=== PATIENT | male | born 1970 | race African-American/Black ===

== ENCOUNTER → 2019-07-01 | Outpatient (CLI) | payer OTHER ==
--- NOTE | 2019-07-01 11:23 | CT ---
EXAMINATION TYPE: CT abdomen pelvis wo/w con DATE OF EXAM: 07/01/2019 COMPARISON: Hematuria HISTORY: Hematuria. Pt not having any other symptoms currently CT DLP: 3453.20 mGycm Automated exposure control for dose reduction was used. CONTRAST: CT scan of the abdomen pelvis is performed with IV Contrast, patient injected with 100 mL of Isovue 3 00. FINDINGS- LUNG BASES- No significant abnormality is appreciated. LIVER/GB- No gross abnormality is appreciated. PANCREAS- No gross abnormality is seen. SPLEEN- No gross abnormality is seen. ADRENALS- No gross abnormality is seen. KIDNEYS/BLADDER- bilateral lobulation of the renal cortex with no definable mass. Left kidney: There are 2 punctate 1 mm calcifications involve the left kidney with no hydronephrosis. Post contrast images demonstrate lobulation of the renal cortex. There is cortical loss involving th e apex. Right kidney: No hydronephrosis or nephrolithiasis.. BOWEL- no bowel dilatation. Normal appendix. LYMPH NODES- No greater than 1cm abdominal or pelvic lymph nodes areappreciated. OSSEOUS STRUCTURES-hypertrophic and degenerative change of the spine. OTHER- prostate gland is mildly thickened and I cannot exclude a mild posterior bladder wall thicken ing. IMPRESSION- 1. Left renal nephrolithiasis without evidence of hydronephrosis. 2. Mild prostate hypertrophy. Could not exclude mild thickening of the posterior wall of the bladder. Recommend ultrasound of the bladder.
== END | disposition home or self-care (01) ==
LOC: RADCTMAIN 07:51
PROVIDERS: ATTEND Urology
DX: N20.0 Calculus of kidney (principal); N40.0 Benign prostatic hyperplasia without lower urinary tract symptoms
CPT/HCPCS: 74178; Q9967

== ENCOUNTER → 2019-07-06 | Outpatient (CLI) | payer OTHER ==
[2019-07-06 12:49] LABS: Calcium 9.9 mg/dL (8.4-10.2); Potassium 4.5 mmol/L (3.5-5.1)
[2019-07-06 14:05] LABS: HCT 45.4 % (39.0-53.0); HGB 14.4 gm/dL (13.0-17.5); MCH 28.8 pg (25.0-35.0); MCHC 31.6 g/dL (31.0-37.0); MCV 91.1 fL (80.0-100.0); Mean Platelet Volume 6.1; Platelet Count 237 k/uL (150-450); RBC 4.99 m/uL (4.30-5.90); RDW 12.6 % (11.5-15.5); WBC 2.7 k/uL (3.8-10.6)
[2019-07-06 15:00] LABS: Basophils # (M) 0.05 k/uL (0-0.2); Eosinophils # (M) 0.05 k/uL (0-0.7); Lymphocytes # (M) 1.08 k/uL (1.0-4.8); Monocytes # (M) 0.38 k/uL (0-1.0); Neutrophils % (M) 42 %; Nucleated Red Blood Cells 0 /100 WBC (0-0); Total Cells Counted 100
== END | disposition home or self-care (01) ==
LOC: LABPAT 11:05
PROVIDERS: ATTEND Urology
DX: Z01.812 Encounter for preprocedural laboratory examination (principal); D49.4 Neoplasm of unspecified behavior of bladder; I10 Essential (primary) hypertension
CPT/HCPCS: 36415; 80048; 85025; 93005

== ENCOUNTER 2019-07-13 07:46 | Day surgery (SDC) | payer OTHER ==
--- NOTE | 2019-07-05 16:09 | P.GSHP ---
History of Present Illness H&P Date: 07/05/19 Chief Complaint: Gross hematuria The patient is a 48-year-old male with intermittent gross hematuria involving the terminal portion of his urinary stream since February 2019. He had prior similar bleeding 1-2 years ago. A renal ultrasound was normal, as well as urine cytology. Cystoscopy revealed edema of the bladder trigone, with possible tumor in that area. Computed tomography scan confirmed posterior bladder wall thickening. He now comes for transurethral resection. - Genitourinary (Female) Genitourinary: Reports hematuria, Denies urinary frequency Surgical - Exam - General well developed, well nourished, no distress - Neck no masses, trachea midline - Respiratory normal respiratory effort, clear to auscultation - Cardiovascular Rhythm: regular Abnormal Heart Sounds: no systolic murmur, no diastolic murmur, no rub, no S3 Gallop, no S4 Gallop, no click, no other - Abdomen Abdomen: soft, non tender, no guarding, no rigid, no rebound - Genitourinary normal penis with no external lesions, testicles non-tender - Rectum Rectum: normal sphincter tone, no masses, other (Prostate mildly enlarged but smooth) - Psychiatric oriented to time, oriented to person, oriented to place, speech is normal, memory intact Results - Imaging CT scan - abdomen: report reviewed, image reviewed CT scan - pelvis: report reviewed, image reviewed Assessment and Plan (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 The procedure has been reviewed in detail with the patient, including rationale and risks. Risks include anesthesia, bleeding, infection, bladder perforation, and postoperative urinary retention. He understands the probable need for a Garcia catheter postoperatively.
[2019-07-12 09:32] VITALS: BMI 35.6
[~2019-07-13 07:46] MED LIST: DEXAMETHASONE SOD PHOSPHATE 10 MG/ML 1 ML VIAL IV ONE; HYDROmorphone 0.5 MG/0.5 ML SYRINGE IVP PRN; LACTATED RINGERS 1,000 ML IV SCH; LIDOCAINE 1% 20 ML VIAL (10MG/ML) FOR IV START INTRADERMA PRN; ONDANSETRON 4 MG/2 ML VIAL IVP ONE; ceFAZolin 3 GM in SODIUM CHLORIDE 0.9% 100 ML IVPB ONE; fentaNYL (PF) 50 MCG/ML 2 ML AMP IV PRN
[2019-07-13] MEDS ORDERED: LACTATED RINGERS 1,000 ML IV ONE (08:12)
[2019-07-13] MEDS ORDERED: MIDAZOLAM 2 MG/2 ML VIAL ONE (10:18)
[2019-07-13] MEDS ORDERED: LIDOCAINE 1% INJ 10MG/ML (20 ML MDV) ONE (10:18)
[2019-07-13] MEDS ORDERED: fentaNYL (PF) 50 MCG/ML 2 ML AMP ONE (10:18)
[2019-07-13] MEDS ORDERED: ROCURONIUM BROMIDE 10 MG/ML 10 ML VIAL IV ONE (10:18)
[2019-07-13] MEDS ORDERED: HYDROmorphone (PF) 1 MG/ML ONE (10:18)
[2019-07-13] MEDS ORDERED: NEOSTIGMINE 1 MG/ML 10 ML VIAL ONE (10:18)
[2019-07-13] MEDS ORDERED: SUCCINYLCHOLINE CHLORIDE VIAL 200 MG/10 ML VIAL IV ONE (10:18)
[2019-07-13] MEDS ORDERED: GLYCOPYRROLATE 0.2 MG/ML 2 ML VIAL ONE (10:18)
[2019-07-13] MEDS ORDERED: PROPOFOL 10 MG/ML 20 ML VIAL IV ONE (10:18)
--- NOTE | 2019-07-13 11:28 | P.OP ---
Date of Procedure: 07/13/19 Preoperative Diagnosis: Bladder tumor Postoperative Diagnosis: Same Procedure(s) Performed: Cystoscopy, transurethral resection of bladder tumor (Large) Anesthesia: MEENUA Surgeon: Sacha Barrios Estimated Blood Loss (ml): 10 IV fluids (ml): 900 Pathology: other (Bladder tumor fragments) Condition: stable Disposition: PACU Indications for Procedure: The patient is a 48-year-old male with intermittent gross hematuria involving the terminal portion of his urinary stream since February 2019. He had prior similar bleeding 1-2 years ago. A renal ultrasound was normal, as well as urine cytology. Cystoscopy revealed edema of the bladder trigone, with possible tumor in that area. CT scan confirmed posterior bladder wall thickening. He now comes for transurethral resection. Operative Findings: Raised edema of the bladder trigone and posterior bladder wall, extending to the prostatic median lobe. Description of Procedure: The patient was taken in the operating room and placed in the dorsal lithotomy p osition, with his legs supported in Rodrick stirrups. The external genitalia was prepped and draped sterilely. The 25-Danish ACMI resectoscope sheath was introduced into the bladder under direct vision. The proximal bulbous urethra was slightly diminished in caliber. The bladder was inspected. The entire bladder was examined, revealing raised edema of the bladder trigone and posterior bladder wall. The ureteral orifices could not be identified. The prostatic urethra showed possible involvement of the median lobe. Using the cutting loop, the tumor was resected down to the muscle. The vast majority of the lesion was resected, the resection was limited in the anticipated area of the ureteral orifices. Excellent hemostasis was attained. The resected tissue was saved and sent for pathologic examination. An 18-Danish Garcia catheter was inserted. The return was clear. The patient tolerated the procedure well. He was taken to the recovery room in stable condition.
[2019-07-13 11:34] VITALS: TEMP 97.1
[2019-07-13 14:02] VITALS: BP 130/81; PULSE 63; RESP 18
[2019-07-13] MEDS ORDERED: HYDROcodone/APAP 5-325MG 1 EACH TAB PO STA (14:57)
[2019-07-13] MEDS ORDERED: HYDROcodone/APAP 5-325MG 1 EACH TAB PO ONE (15:03)
== END 2019-07-13 16:43 | disposition home or self-care (01) ==
LOC: OR 07:46
PROVIDERS: ATTEND Urology
DX: N30.81 Other cystitis with hematuria (principal); I10 Essential (primary) hypertension; G47.33 Obstructive sleep apnea (adult) (pediatric); Z99.89 Dependence on other enabling machines and devices; Z87.891 Personal history of nicotine dependence; Z79.899 Other long term (current) drug therapy
CPT/HCPCS: 88305; 88307; 52240; J2250; J0330; J1100; J2710; J0690; J2405; J2001; J3010; J1170 ×2; J2704

== ENCOUNTER 2019-07-13 21:38 | Emergency (ER) | payer OTHER ==
[2019-07-13 22:01] VITALS: BP 144/90; PULSE 100; RESP 18; TEMP 98.1
--- NOTE | 2019-07-13 22:21 | ED ---
General Adult HPI - General Chief complaint: Recheck/Abnormal Lab/Rx Stated complaint: Catheter Needs Replacing Post Surgery Time Seen by Provider: 07/13/19 22:04 Source: patient Mode of arrival: ambulatory Limitations: no limitations - History of Present Illness Initial comments: Dictation was produced using [employer] dictation software. please excuse any grammatical, word or spelling errors. Chief Complaint: This 48-year-old male presents after his Garcia fell out. History of Present Illness: 48-year-old male he recently had cystoscopy performed by Dr. Shahid. Patient was at home when his Garcia catheter fell out. Patient states that the Garcia catheter slid out while he was standing. Patient had cystoscopy performed earlier today. A Garcia catheter placed post- cystoscopy. Patient has other complaints at this time. The ROS documented in this emergency department record has been reviewed and confirmed by me. Those systems with pertinent positive or negative responses have been documented in the HPI. All other systems are other negative and/or noncontributory. PHYSICAL EXAM: General Impression: Alert and oriented x3, not in acute distress HEENT: Normocephalic atraumatic, extra-ocular movements intact, pupils equal and reactive to light bilaterally, mucous membranes moist. Cardiovascular: Heart regular rate and rhythm, S1&S2 audible, no murmurs, rubs or gallops Chest: Lungs clear to auscultation bilaterally, no rhonchi, no wheeze, no rales Abdomen: Bowel sounds present, abdomen soft, non-tender, non-distended, no organomegaly Musculoskeletal: Pulses present and equal in all extremities, no peripheral edema Motor: no focal deficits noted Neurological: CN II-XII grossly intact, no focal motor or sensory deficits noted Skin: Intact with no visualized rashes Psych: Normal affect and mood ED course: 48 old male presents after Garcia catheter fell out. Patient this Garcia catheter placed postoperatively. He has cystoscopy performed were he had transurethral resection of bladder tumor. Signs upon arrival are within acceptable limits. Garcia catheter was replaced using a 16-Icelandic Garcia catheter kit. No difficulties with placement of Garcia catheter. Patient discharged told to follow-up with his urologist. - Related Data Home Medications Medication Instructions Recorded Confirmed Metoprolol Tartrate [Lopressor] 50 mg PO QAM 07/12/19 07/13/19 Spironolactone 50 mg PO QAM 07/12/19 07/13/19 amLODIPine BESYLATE/BENAZEPRIL 1 cap PO QAM 07/12/19 07/13/19 [amLODIPine BESYLATE/BENAZEPRIL 10-40 MG] Previous Rx's Medication Instructions Recorded Hydrocodone/Acetaminophen [[place] 1 - 2 each PO Q4HR PRN #6 tab 07/13/19 5-325] Allergies Allergy/AdvReac Type Severity Reaction Status Date / Time No Known Allergies Allergy Verified 07/13/19 22:01 Review of Systems ROS Statement: Those systems with pertinent positive or pertinent negative responses have been documented in the HPI. ROS Other: All systems not noted in ROS Statement are negative. Past Medical History Past Medical History: Hypertension, Sleep Apnea/CPAP/BIPAP Additional Past Medical History / Comment(s): bladder issues History of Any Multi-Drug Resistant Organisms: None Reported Additional Past Surgical History / Comment(s): left forearm, vastectomy, tumor removal from bladder 07/13/19 Past Psychological History: No Psychological Hx Reported Smoking Status: Never smoker Past Alcohol Use History: Rare Past Drug Use History: None Reported General Exam Limitations: no limitations Course Vital Signs 07/13/19 21:57 Temperature 98.1 F Pulse Rate 100 Respiratory 18 Rate Blood Pressure 144/90 O2 Sat by Pulse 97 Oximetry Disposition Clinical Impression: Dislodged Garcia catheter Disposition: HOME SELF-CARE Condition: Good Instructions (If sedation given, give patient instructions): Garcia Catheter Placement and Care (ED) Is patient prescribed a controlled substance at d/c from ED?: No Referrals: Sacha Barrios MD [STAFF PHYSICIAN] - 1-2 days Time of Disposition: 22:21
== END 2019-07-13 22:25 | disposition home or self-care (01) ==
LOC: EC 21:38
DX: T83.028A Displacement of other urinary catheter, initial encounter (principal); I10 Essential (primary) hypertension; G47.30 Sleep apnea, unspecified; Z79.899 Other long term (current) drug therapy; Z98.890 Other specified postprocedural states; Z99.89 Dependence on other enabling machines and devices
CPT/HCPCS: 51702; 99282

== ENCOUNTER 2019-08-11 07:38 | Emergency (ER) | payer OTHER ==
[2019-08-11 07:45] VITALS: TEMP 97.4
[2019-08-11] MEDS ORDERED: SODIUM CHLORIDE 0.9% 500 ML 500 ML IV ONE (07:53)
[2019-08-11] MEDS ORDERED: MORPHINE SULFATE 4 MG/ML SYRINGE IVP STA (07:53)
[2019-08-11] MEDS ORDERED: ONDANSETRON 4 MG/2 ML VIAL IVP STA (07:53)
--- NOTE | 2019-08-11 08:04 | ED ---
Abdominal Pain HPI - General Chief Complaint: Abdominal Pain Stated Complaint: Blood in Urine Time Seen by Provider: 08/11/19 07:40 Source: patient Mode of arrival: ambulatory Limitations: no limitations - History of Present Illness Initial Comments: 48-year-old male history of recent urinary tract infection and hematuria times one presenting to the emergency department today for chief complaint of increasing hematuria with clotting, decreased stream of urination, and right flank pain. Patient states that last night he began developing right flank pain and he noticed this morning that increasing hematuria he states there is now bright red blood instead of light pink with clots and he feels that this is causing a decrease in his stream of urine. When the discomfort and hematuria continued this morning patient presents emergency department for further evaluation. Patient has established urology care. Patient denies any fevers or chills. Admits to slight nausea denies vomiting, diarrhea. Patient denies chest pain, SOB, or any other complaints. Remaining ROS (-). - Related Data Home Medications Medication Instructions Recorded Confirmed Metoprolol Tartrate [Lopressor] 50 mg PO HS 07/12/19 08/11/19 Spironolactone 50 mg PO DAILY 07/12/19 08/11/19 amLODIPine BESYLATE/BENAZEPRIL 1 cap PO DAILY 07/12/19 08/11/19 [amLODIPine BESYLATE/BENAZEPRIL 10-40 MG] Ibuprofen [Motrin] 600 mg PO TID PRN 08/11/19 08/11/19 Allergies Allergy/AdvReac Type Severity Reaction Status Date / Time No Known Allergies Allergy Verified 08/11/19 08:35 Review of Systems ROS Statement: Those systems with pertinent positive or pertinent negative responses have been documented in the HPI. ROS Other: All systems not noted in ROS Statement are negative. Past Medical History Past Medical History: Hypertension, Sleep Apnea/CPAP/BIPAP Additional Past Medical History / Comment(s): bladder issues History of Any Multi-Drug Resistant Organisms: None Reported Additional Past Surgical History / Comment(s): left forearm, vastectomy, tumor removal from bladder 07/13/19 Past Psychological History: No Psychological Hx Reported Smoking Status: Never smoker Past Alcohol Use History: Rare Past Drug Use History: None Reported General Exam - General Exam Comments Initial Comments: General: The patient is awake and alert, in no distress Eye: +3 mm pupils are equal, round and reactive to light, extra-ocular movements are intact. No nystagmus. There is normal conjunctiva bilaterally. No signs of icterus. Ears, nose, mouth and throat: There are moist mucous membranes and no oral lesions. Neck: The neck is supple, there is no tenderness or JVD. Cardiovascular: There is a regular rate and rhythm. No murmur, rub or gallop is appreciated. Respiratory: Lungs are clear to auscultation, respirations are non-labored, breath sounds are equal. No wheezes, stridor, rales, or rhonchi. Gastrointestinal: Soft, non-distended, non-tender abdomen without masses or organomegaly noted. There is no rebound or guarding present. No CVA tenderness. Musculoskeletal: Normal ROM, no tenderness. Strength 5/5. Sensation intact. Radial pulses equal bilaterally 2+. Neurological: A&O x 3. CN II-XII intact grossly, There are no obvious motor or sensory deficits. Coordination appears grossly intact. Speech is normal. Skin: Skin is warm and dry and no rashes or lesions are noted. Psychiatric: Cooperative, appropriate mood & affect, normal judgment. Limitations: no limitations Course Vital Signs 08/11/19 08/11/19 07:42 12:00 Temperature 97.4 F L Pulse Rate 73 74 Respiratory 20 16 Rate Blood Pressure 148/82 161/90 O2 Sat by Pulse 99 99 Oximetry Medical Decision Making - Medical Decision Making 48 year male with history of hematuria times someone with recent cystoscopy to rule out bladder tumor 07/13 presenting for evaluation of increasing hematuria. Patient states he has had increasing hematuria for one day with clots. Concern is decreasing his urine output. Post residual void 1:30. Patient states he passed large clots and is feeling better. CT revealed hemorrhage of the ureter. Discussed findings with Dr. Pascal who contracted Dr. Rodríguez who is suspicious for AVM of genitourinary system. He recommends discharge with outpatient f/u, with return for decreased urine output. His discomfort controlled emergency department. He is agreeable to discharge. Patient discharged appearing well - Lab Data Result diagrams: 08/11/19 08:06 08/11/19 08:06 Lab Results 08/11/19 08/11/19 08/11/19 Range/Units 08:06 08:06 08:06 WBC 3.3 L (3.8-10.6) k/uL RBC 4.50 (4.30-5.90) m/uL Hgb 13.1 (13.0-17.5) gm/dL Hct 40.7 (39.0-53.0) % MCV 90.3 (80.0-100.0) fL MCH 29.0 (25.0-35.0) pg MCHC 32.1 (31.0-37.0) g/dL RDW 12.6 (11.5-15.5) % Plt Count 255 (150-450) k/uL Neutrophils % 54 % Lymphocytes % 32 % Monocytes % 8 % Eosinophils % 1 % Basophils % 1 % Neutrophils # 1.8 (1.3-7.7) k/uL Lymphocytes # 1.1 (1.0-4.8) k/uL Monocytes # 0.3 (0-1.0) k/uL Eosinophils # 0.1 (0-0.7) k/uL Basophils # 0.0 (0-0.2) k/uL Sodium 143 (137-145) mmol/L Potassium 4.0 (3.5-5.1) mmol/L Chloride 106 (98-107) mmol/L Carbon Dioxide 26 (22-30) mmol/L Anion Gap 11 mmol/L BUN 13 (9-20) mg/dL Creatinine 1.58 H (0.66-1.25) mg/dL Est GFR (CKD-EPI)AfAm 60 (>60 ml/min/1.73 sqM) Est GFR (CKD-EPI)NonAf 52 (>60 ml/min/1.73 sqM) Glucose 114 H (74-99) mg/dL Calcium 9.3 (8.4-10.2) mg/dL Total Bilirubin 0.6 (0.2-1.3) mg/dL AST 27 (17-59) U/L ALT 26 (21-72) U/L Alkaline Phosphatase 66 (38-126) U/L Total Protein 8.2 (6.3-8.2) g/dL Albumin 4.3 (3.5-5.0) g/dL Urine Color Dark Red Urine Appearance Bloody (Clear) Urine RBC >182 H (0-5) /hpf Urine WBC >182 H (0-5) /hpf Disposition Clinical Impression: Hematuria, Right flank pain Disposition: HOME SELF-CARE Condition: Good Instructions (If sedation given, give patient instructions): Hematuria (ED) Additional Instructions: Please use medication as discussed. Please follow-up with urology in next week. If unable to urinate please return immediately to the ER. Please return to emergency room if the symptoms increase or worsen or for any other concerns. Is patient prescribed a controlled substance at d/c from ED?: No Referrals: Norma Rodriguez DO [Primary Care Provider] - 1-2 days Sacha Barrios MD [STAFF PHYSICIAN] - 1-2 days Time of Disposition: 11:22
[2019-08-11] MEDS: SODIUM CHLORIDE 0.9% 1,000 ML IV SCH (08:11)
[2019-08-11 08:39] LABS: RBC,Urine >182 /hpf (0-5); WBC,Urine >182 /hpf (0-5)
[2019-08-11 08:44] LABS: Albumin 4.3 g/dL (3.5-5.0); Basophils % (A) 1 %; Calcium 9.3 mg/dL (8.4-10.2); Eosinophils # (A) 0.1 k/uL (0-0.7); Eosinophils % (A) 1 %; HCT 40.7 % (39.0-53.0); HGB 13.1 gm/dL (13.0-17.5); Lymphocytes # (A) 1.1 k/uL (1.0-4.8); Lymphocytes % (A) 32 %; MCHC 32.1 g/dL (31.0-37.0); MCV 90.3 fL (80.0-100.0); Mean Platelet Volume 6.5; Monocytes # (A) 0.3 k/uL (0-1.0); Monocytes % (A) 8 %; Neutrophils # (A) 1.8 k/uL (1.3-7.7); Neutrophils % (A) 54 %; Platelet Count 255 k/uL (150-450); RDW 12.6 % (11.5-15.5); Total Bilirubin 0.6 mg/dL (0.2-1.3); Total Protein 8.2 g/dL (6.3-8.2); WBC 3.3 k/uL (3.8-10.6)
[2019-08-11 08:55] LABS: Appearance,Urine Bloody (Clear)
[2019-08-11 08:56] LABS: Color,Urine Dark Red
--- NOTE | 2019-08-11 10:03 | CT ---
EXAMINATION TYPE: CT abdomen pelvis wo con DATE OF EXAM: 08/11/2019 COMPARISON: 07/01/2019 HISTORY: Right flank pain CT DLP: 1438 mGycm Automated exposure control for dose reduction was used. TECHNIQUE: Helical acquisition of images was performed from the lung bases through the pelvis. FINDINGS: Lack of intravenous and oral contrast limit evaluation of both the hollow and solid viscera . LUNG BASES: Minimal bibasilar subsegmental dependent atelectasis. LIVER/GB: Unenhanced liver is unremarkable. No calculi are seen within the gallbladder that are radio paque. PANCREAS: No ductal dilatation seen. SPLEEN: No significant abnormality is seen. ADRENALS: No significant abnormality is seen. KIDNEYS: There is high density within the proximal right ureter however this appears more hemorrhage than calculus. This is seen in image 64 and 66. There is moderate right proximal hydroureteronephrosi s and perinephric stranding. Nonobstructing punctate 1 mm calculus in the right upper pole is seen in image 53 and on the left there are few sub-3 mm nonobstructing calculi (3 in number) within the lowe r pole. Within the urinary bladder there is amorphous high density predominating dependently on the r ight ureterovesicular junction. This measures occipitally 4.4 x 3.0 cm. Findings could represent hemo rrhage or density tumor. Ultrasound is recommended to evaluate for vascularity. There is a lobulated contour of both kidneys. FREE AIR: No free air is visualized ADENOPATHY: No greater than 1 cm short axis lymph node in the abdomen or pelvis. REPRODUCTIVE ORGANS: Heterogenous but nonenlarged. Intravenous fat filled inguinal canals, right grea ter than left. OSSEOUS STRUCTURES: Multilevel degenerative disc disease of the lumbar spine. BOWEL: There is a small hiatal hernia present. Diaphragmatic rent is also seen on the left with Mike dalek hernia. There is decompression of the large bowel entirely with submucosal deposition of fat th roughout the appearance of bowel wall thickening throughout. No pericolonic fluid collection is seen. Submucosal deposition of fat is also seen in the terminal ileum. Findings involve few loops of small bowel in the right mid abdomen such as on coronal image 49. IMPRESSION: 1. MODERATE RIGHT HYDROURETERONEPHROSIS APPEARING HEMORRHAGE WITHIN THE PROXIMAL RIGHT URETER AND HEMORRHAGIC DENSITY IN THE URINARY BLADDER NEAR THE RIGHT URETEROVESICULAR JUNCTION MEASURING UP TO 1 .4 CM AND COULD REPRESENT MASS OR BLOOD CLOT. ULTRASOUND IS RECOMMENDED WITH FLOW TO EVALUATE FOR INT ERNAL VASCULARITY. 2. FINDINGS SUGGESTING ACUTE ON CHRONIC PANCOLITIS AND INVOLVEMENT OF THE TERMINAL ILEUM. CONSIDER IN FLAMMATORY BOWEL DISEASE SUCH CROHN'S. 3. BILATERAL NONOBSTRUCTING RENAL CALCULI.
[2019-08-11] MEDS ORDERED: HYDROmorphone 0.5 MG/0.5 ML SYRINGE IVP STA (10:38)
--- NOTE | 2019-08-11 11:35 | US ---
EXAMINATION TYPE: US renals and bladder DATE OF EXAM: 08/11/2019 COMPARISON: CT of the same date CLINICAL HISTORY: hemorrhage. Patient states having bladder surgery x 1 month ago. Patient states do ctor thought there was a tumor on bladder wall, but ended up being a focal area of inflammation. EXAM MEASUREMENTS: Right Kidney: 10.9 x 5.8 x 6.4 cm Left Kidney: 10.0 x 5.9 x 5.6 cm Right Kidney: Cortex appears lobular. Left Kidney: Cortex appears lobular. Bladder: Internal echoes seen throughout bladder. Posterior focal area seen, nonvascular = 3.2 x 2.8 x 1.9 cm Bilateral Jets not seen There is no evidence for hydronephrosis at this point in time. No nephrolithiasis is seen. No edvin s are identified. Bilateral ureteral jets are not seen. Hips impression: Debris seen within the urinary bladder with more well-formed approximately 3.2 cm de pendent lesion that is avascular favoring a blood clot rather than tumor although direct visualizatio n should remain a consideration.
[2019-08-11 12:01] VITALS: BP 161/90; PULSE 74; RESP 16
== END 2019-08-11 12:03 | disposition home or self-care (01) ==
LOC: EC 07:38
DX: R10.9 Unspecified abdominal pain (principal); R31.9 Hematuria, unspecified; N28.89 Other specified disorders of kidney and ureter; R11.0 Nausea; I10 Essential (primary) hypertension; G47.30 Sleep apnea, unspecified; Z79.899 Other long term (current) drug therapy; Z87.440 Personal history of urinary (tract) infections; Z98.52 Vasectomy status; Z98.890 Other specified postprocedural states; Z99.89 Dependence on other enabling machines and devices
CPT/HCPCS: 51798; 36415; 80053; 85025; 81001; 76770; 74176; 99284; 96374; 96375 ×2; 96361; J2270; J2405; J1170

== ENCOUNTER 2019-08-12 13:14 | Emergency (ER) | payer OTHER ==
--- NOTE | 2019-08-12 13:57 | ED ---
General Adult HPI - General Chief complaint: Urogenital Stated complaint: Urogenital Time Seen by Provider: 08/12/19 13:43 Source: patient Mode of arrival: ambulatory Limitations: no limitations - History of Present Illness Initial comments: Dictation was produced using [employer] dictation software. please excuse any grammatical, word or spelling errors. Chief Complaint: 48-year-old male presents with urinary retention. History of Present Illness: 48-year-old male he was seen here yesterday for same complaint. Patient was evaluated for symptoms of urinary retention and hematuria. Patient is cystoscopy performed approximately one month ago. Urology was consulted and is concern of a AV malformation of the genitourinary system. He was discharged yesterday and told to follow up outpatient. Since yesterday's been having difficulty urinating. Patient states he is unable to completely drain his bladder. He is able to however have some dribbling. Patient decided come back to the emergency department. Does complain of some mild suprapubic discomfort. The ROS documented in this emergency department record has been reviewed and confirmed by me. Those systems with pertinent positive or negative responses have been documented in the HPI. All other systems are other negative and/or noncontributory. PHYSICAL EXAM: General Impression: Alert and oriented x3, not in acute distress HEENT: Normocephalic atraumatic, extra-ocular movements intact, pupils equal and reactive to light bilaterally, mucous membranes moist. Cardiovascular: Heart regular rate and rhythm, S1&S2 audible, no murmurs, rubs or gallops Chest: Lungs clear to auscultation bilaterally, no rhonchi, no wheeze, no rales Abdomen: Bowel sounds present, mild tenderness to the suprapubic area Musculoskeletal: Pulses present and equal in all extremities, no peripheral edema Motor: no focal deficits noted Neurological: CN II-XII grossly intact, no focal motor or sensory deficits noted Skin: Intact with no visualized rashes Psych: Normal affect and mood ED course: 48-year-old male presents with urinary retention. He had cystoscopy performed recently concerning for AV malformation in the bladder. Vital signs upon arrival are within acceptable limits. Bladder scan was performed with 600 mL in the bladder. Garcia catheter was placed with drainage of approximately 900 mL. Patient reports improvement of his symptoms. Patient will follow up with urology upon discharge. - Related Data Home Medications Medication Instructions Recorded Confirmed Metoprolol Tartrate [Lopressor] 50 mg PO HS 07/12/19 08/11/19 Spironolactone 50 mg PO DAILY 07/12/19 08/11/19 amLODIPine BESYLATE/BENAZEPRIL 1 cap PO DAILY 07/12/19 08/11/19 [amLODIPine BESYLATE/BENAZEPRIL 10-40 MG] Ibuprofen [Motrin] 600 mg PO TID PRN 08/11/19 08/11/19 Allergies Allergy/AdvReac Type Severity Reaction Status Date / Time No Known Allergies Allergy Verified 08/12/19 13:21 Review of Systems ROS Statement: Those systems with pertinent positive or pertinent negative responses have been documented in the HPI. ROS Other: All systems not noted in ROS Statement are negative. Past Medical History Past Medical History: Hypertension, Sleep Apnea/CPAP/BIPAP Additional Past Medical History / Comment(s): bladder issues History of Any Multi-Drug Resistant Organisms: None Reported Additional Past Surgical History / Comment(s): left forearm, vastectomy, tumor removal from bladder 07/13/19 Past Psychological History: No Psychological Hx Reported Smoking Status: Never smoker Past Alcohol Use History: Rare Past Drug Use History: None Reported General Exam Limitations: no limitations Course Vital Signs 08/12/19 13:18 Temperature 98.2 F Pulse Rate 71 Respiratory 18 Rate Blood Pressure 145/100 O2 Sat by Pulse 96 Oximetry Disposition Clinical Impression: Urinary retention Disposition: HOME SELF-CARE Condition: Good Instructions (If sedation given, give patient instructions): Hematuria (ED) Is patient prescribed a controlled substance at d/c from ED?: No Referrals: Sacha Barrios MD [STAFF PHYSICIAN] - 1-2 days Time of Disposition: 14:35
[2019-08-12 15:02] VITALS: BP 149/99; PULSE 66; RESP 19; TEMP 98.4
== END 2019-08-12 15:01 | disposition home or self-care (01) ==
LOC: EC 13:14
DX: R33.9 Retention of urine, unspecified (principal); Q27.39 Arteriovenous malformation, other site; I10 Essential (primary) hypertension; G47.30 Sleep apnea, unspecified; Z79.899 Other long term (current) drug therapy; Z98.52 Vasectomy status; Z99.89 Dependence on other enabling machines and devices
CPT/HCPCS: 51702; 51798; 99283

== ENCOUNTER 2019-08-12 22:04 | Emergency (ER) | payer OTHER ==
[2019-08-12 22:25] VITALS: BP 149/104; PULSE 82; RESP 18; TEMP 98.3
[2019-08-13] MEDS ORDERED: LIDOCAINE URO-JET JELLY 2% 5 ML KIT URETHRAL ONE (00:08)
--- NOTE | 2019-08-13 00:36 | ED ---
Male Urogenital HPI - General Chief complaint: Urogenital Stated complaint: Urogenital Time Seen by Provider: 08/12/19 22:35 Source: patient Mode of arrival: ambulatory Limitations: no limitations - History of Present Illness Initial comments: This patient is a 48-year-old man who presents because he is having suprapubic discomfort and believes his Garcia catheter is obstructed. 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 It sounds as if he is describing a cystoscopic procedure. The patient has had some i ntermittent hematuria since that time. He was seen here 2 days ago and had Garcia catheter placed to facilitate drainage, as it sounds like he had some clots blocking the outflow. He was back when the catheter became obstructed and he had this cleared. He states that this is recurred this evening. He is having an urge to urinate and feels as if his bladder is full. Patient denies other symptoms. No fever or chills. No flank pain. No abdominal pain. No nausea or vomiting. No change in bowel movements. MD Complaint: other (Hematuria and Garcia catheter obstruction) -: days(s) Location: abdomen Radiation: none Severity: mild Quality: other (Fullness) Consistency: constant Improves with: none Worsens with: none indwelling catheter Reports: urinary retention, blood in urine - Related Data Home Medications Medication Instructions Recorded Confirmed Metoprolol Tartrate [Lopressor] 50 mg PO HS 07/12/19 08/11/19 Spironolactone 50 mg PO DAILY 07/12/19 08/11/19 amLODIPine BESYLATE/BENAZEPRIL 1 cap PO DAILY 07/12/19 08/11/19 [amLODIPine BESYLATE/BENAZEPRIL 10-40 MG] Ibuprofen [Motrin] 600 mg PO TID PRN 08/11/19 08/11/19 Allergies Allergy/AdvReac Type Severity Reaction Status Date / Time No Known Allergies Allergy Verified 08/12/19 13:21 Review of Systems ROS Statement: Those systems with pertinent positive or pertinent negative responses have been documented in the HPI. ROS Other: All systems not noted in ROS Statement are negative. Constitutional: Denies: fever, chills Respiratory: Denies: cough, dyspnea Cardiovascular: Denies: chest pain, palpitations, edema Gastrointestinal: Denies: abdominal pain, vomiting, diarrhea, constipation Genitourinary: Reports: as per HPI, hematuria. Denies: dysuria, testicular pain, testicular mass Musculoskeletal: Denies: back pain Skin: Denies: rash Hematological/Lymphatic: Denies: easy bleeding Past Medical History Past Medical History: Hypertension, Sleep Apnea/CPAP/BIPAP Additional Past Medical History / Comment(s): bladder issues History of Any Multi-Drug Resistant Organisms: None Reported Additional Past Surgical History / Comment(s): left forearm, vastectomy, tumor removal from bladder 07/13/19 Past Psychological History: No Psychological Hx Reported Smoking Status: Never smoker Past Alcohol Use History: Rare Past Drug Use History: None Reported General Exam Limitations: no limitations General appearance: alert, in no apparent distress Head exam: Present: atraumatic, normocephalic Respiratory exam: Present: normal lung sounds bilaterally. Absent: respiratory distress, wheezes, rales, rhonchi, stridor Cardiovascular Exam: Present: regular rate, normal rhythm, normal heart sounds. Absent: systolic murmur, diastolic murmur, rubs, gallop GI/Abdominal exam: Present: soft, other (There is fullness at suprapubic area consistent with bladder). Absent: distended, tenderness, guarding, rebound, rigid, mass Extremities exam: Present: normal inspection, normal capillary refill. Absent: pedal edema, calf tenderness Skin exam: Present: warm, dry, intact, normal color. Absent: rash Course Vital Signs 08/12/19 22:23 Temperature 98.3 F Pulse Rate 82 Respiratory 18 Rate Blood Pressure 149/104 O2 Sat by Pulse 99 Oximetry Disposition Clinical Impression: Obstructed Garcia catheter, Hematuria, Urinary retention Disposition: HOME SELF-CARE Condition: Good Instructions (If sedation given, give patient instructions): Hematuria (ED) Is patient prescribed a controlled substance at d/c from ED?: No Referrals: Norma Rodriguez DO [Primary Care Provider] - 1-2 days Sacha Barrios MD [STAFF PHYSICIAN] - 1-2 days
== END 2019-08-13 02:07 | disposition home or self-care (01) ==
LOC: EC 22:04
DX: T83.098A Other mechanical complication of other urinary catheter, initial encounter (principal); I10 Essential (primary) hypertension; G47.30 Sleep apnea, unspecified; Z79.899 Other long term (current) drug therapy; Z86.018 Personal history of other benign neoplasm; Z98.52 Vasectomy status; Z98.890 Other specified postprocedural states; Z99.89 Dependence on other enabling machines and devices
CPT/HCPCS: 51702; 51798; 99283

== ENCOUNTER → 2021-04-10 | Outpatient (CLI) | payer OTHER ==
--- NOTE | 2021-04-10 09:27 | XR ---
EXAMINATION TYPE: XR lumbar spine 2 or 3V DATE OF EXAM: 04/10/2021 CLINICAL HISTORY: pain TECHNIQUE: Three views of the lumbar spine are submitted. COMPARISON: None. FINDINGS: There are 5 lumbar type vertebral bodies identified. The lumbar spine shows satisfactory alignment w ithout evidence of acute fracture or dislocation. Vertebral body heights are within normal limits. Mild degenerative disc space narrowing and spondylosis L3-4 and L4-5. The overlying soft tissue appe ars unremarkable. IMPRESSION: No acute fracture or dislocation is seen in the lumbar spine. ICD 10 NO FRACTURE, INITIAL EVALUATION
--- NOTE | 2021-04-10 09:56 | XR ---
EXAMINATION TYPE: XR cervical spine limited DATE OF EXAM: 04/10/2021 CLINICAL HISTORY: pain TECHNIQUE: 3 views of the cervical spine are submitted. COMPARISON: None. FINDINGS: There is satisfactory in alignment without evidence of acute fracture or dislocation. The pre-vertebral soft tissue appears within normal limits. Moderate degenerative narrowing and spondylo sis extending from C4-5 and C5-6. The C1-C2 articulation is unremarkable on the open mouth view. IMPRESSION: No acute fracture or dislocation is seen in the cervical spine.
== END | disposition home or self-care (01) ==
LOC: RADXRMAIN 08:53
PROVIDERS: ATTEND Physician Assistant Medical
DX: M54.5 Low back pain (principal)
CPT/HCPCS: 72040; 72100

== ENCOUNTER → 2022-12-16 | Outpatient (CLI) | payer OTHER ==
--- NOTE | 2022-12-18 09:03 | CT ---
EXAMINATION TYPE: CT urogram wo/w con CT DLP: 3377 mGycm, Automated exposure control for dose reduction was used. DATE OF EXAM: 12/16/2022 4:44 PM COMPARISON: CT abdomen 08/11/2019. CLINICAL INDICATION:Male, 51 years old with history of R31.0, hematuria TECHNIQUE: Urogram with imaging of the abdomen and pelvis. Coronal and sagittal reformats were performed. 2D and 3D reconstructions are performed to assist visualization of the urinary tract on a separate workstat ion. Contrast used:90ml mL of Isovue 370 , Oral contrast used: None. FINDINGS: LOWER CHEST: Left posterior fat-containing Bochdalek hernia. GENITOURINARY: RIGHT KIDNEY AND URETER: Nonobstructing 4 mm calculus. No hydronephrosis or hydroureter. No renal mas s or other lesions. No urothelial lesions: no filling defect, dilation, stricture or wall thickening. LEFT KIDNEY AND URETER: Nonobstructing 3 mm calculus. No hydronephrosis or hydroureter. No renal mass or other lesions. No urothelial lesions: no filling defect, dilation, stricture or wall thickening. URINARY BLADDER: Not optimally distended. Limited evaluation secondary to partial filling of the blad nick with excreted IV contrast. No calculi or obvious mass. REPRODUCTIVE: Prostate is enlarged measuring up to 5.6 cm. ABDOMEN LIVER: Unremarkable. GALLBLADDER AND BILE DUCTS: Unremarkable PANCREAS: Unremarkable. SPLEEN: Unremarkable. ADRENAL GLANDS: Unremarkable. STOMACH AND BOWEL: . No evidence of bowel obstruction. Few scattered colonic diverticula. PERITONEUM: No evidence of pneumoperitoneum, free fluid, or adenopathy. VASCULATURE: No evidence of aortic aneurysm. MUSCULOSKELETAL: No acute osseous abnormalities, multilevel disc degeneration changes with osteophyte formation and facet joint arthropathy. Sacroiliac joint osteoarthrosis changes. LYMPH NODES: No gross evidence for lymphadenopathy. SOFT TISSUE/ABDOMINAL WALL: Fat-containing right inguinal hernia. IMPRESSION: 1. No evidence of renal/urothelial neoplasm. 2. Bilateral nonobstructing renal calculi. 3. Prostatomegaly, correlate with serum PSA. 4. Right fat containing inguinal hernia.
== END | disposition home or self-care (01) ==
LOC: RADCTMAIN 15:39
PROVIDERS: ATTEND Urology
DX: N20.0 Calculus of kidney (principal); N40.0 Benign prostatic hyperplasia without lower urinary tract symptoms; K40.90 Unilateral inguinal hernia, without obstruction or gangrene, not specified as recurrent
CPT/HCPCS: 74178; 74400; Q9967

== ENCOUNTER → 2023-03-03 | Outpatient (CLI) | payer OTHER ==
--- NOTE | 2023-03-03 16:12 | P.SLEEP ---
History of Present Illness DATE: 03/03/2023 CONSULTATION/NEW PATIENT EVALUATION HISTORY OF PRESENT ILLNESS/SLEEP-WAKE EVALUATION: 52 year old gentleman had been evaluated in the sleep center for obstructive sleep apnea hypopnea syndrome. Patient has history of obstructive sleep apnea diagnosed about 23 years ago. Patient CPAP unit is extremely old. SLEEP SCHEDULE: Usually sleep schedule from 10:30 PM until 5 AM on weekdays and from midnight until 5 AM on weekend. FALLING ASLEEP: [].No problems with falling asleep, although patient has TV set and bedroom. DURING SLEEP: Patient has episodes of snoring and awakenings from sleep several times even while using CPAP equipment. No history of hypnogogical hallucinations, sleep paralysis, or cataplexy. DURING THE DAY/WAKE STATE: In the morning patient wake up tired, falling asleep during the day. [place] sleepiness scale is 12, which indicates sleepiness. Patient usually doesn't take naps. PAST MEDICAL HISTORY: Hypertension, familial tremor. PAST SURGICAL HISTORY: Bladder surgery, left forearm surgery. MEDICATIONS: Amlodipine/benazepril , metoprolol 50 mg once a day, spironol actone 50 mg once a day 10-20 milligrams once a day. SOCIAL HISTORY: Negative for smoking, alcohol consumption occasional. FAMILY HISTORY: Hypertension, sleep apnea, cancer. REVIEW OF SYSTEMS: Snoring, awakenings from sleep, sleepiness. No fevers. No double vision. No recent chest pain. No shortness of breath. No abdominal pain. No bleeding episodes. No blood in urine. No seizure episodes. PHYSICAL EXAMINATION: GENERAL: A pleasant patient without any distress. VITAL SIGNS: BP 142/93 , HR 80 , RR 16 , weight to 96.0 pounds, height 6 foot 1.5 inches, body mass index 38.5 . HEENT: PERRLA, EOMI. Evaluation of oropharynx showed tongue protrudes midline, low position of soft palate Mallampati 4. NECK: Supple. No JVD. Thyroid is not palpable. 19.5 inches in circumference. LUNGS: Clear to percussion and to auscultation. Good air exchange. No wheezing or rhonchi. HEART: S1, S2 regular. No murmurs, gallops or rubs. ABDOMEN: Soft and nontender. Bowel sounds are present. No organomegaly appreciated. Slightly obese EXTREMITIES: No clubbing or cyanosis. PRODUCTION CHECKER: Awake, alert, and oriented x3. Cranial nerves 2 to 7 intact. There is no fasciculation or atrophy noted. No focal deficits observed. ASSESSMENT: 1. Snoring, multiple awakenings from sleep, extremely low position of soft palate Mallampati 4, extremely wide neck 19.5 inches in circumference. Obstructive sleep apnea-hypopnea syndrome. 2. Obesity, BMI 38.5. 3. Hypertension. 4. History of familial tremor. 5 status post bladder surgery. 6 . Status post forearm surgery. PLAN: 1. Polysomnography for evaluation of patient's breathing during sleep. 2. CPAP/BiPAP titration if sleep study confirms obstructive sleep apnea- hypopnea syndrome. 3. Preferable position during sleep on the side. 4. No driving if patient feels any sleepiness. Patient is aware of civil and criminal liability for unsafe driving. 5. Sleep hygiene with regular sleep time for at least 7.5-8 hours. 6. Watching and losing weight. Thank you very much for referring this patient for consultation. Sincerely, Mark Trammell MD, PhD, FAASM. Diplomat of [employer], Sleep Medicine Board by [employer] Transitions Manager Rn of [facility] [place] Past Medical History Past Medical History: Hypertension, Sleep Apnea/CPAP/BIPAP Additional Past Medical History / Comment(s): bladder issues History of Any Multi-Drug Resistant Organisms: None Reported Additional Past Surgical History / Comment(s): left forearm, vastectomy, tumor removal from bladder 07/13/19 Past Psychological History: No Psychological Hx Reported Past Alcohol Use History: Rare Past Drug Use History: None Reported Medications and Allergies Home Medications Medication Instructions Recorded Confirmed Type Metoprolol Tartrate [Lopressor] 50 mg PO HS 07/12/19 08/11/19 History Spironolactone 50 mg PO DAILY 07/12/19 08/11/19 History amLODIPine BESYLATE/BENAZEPRIL 1 cap PO DAILY 07/12/19 08/11/19 History [amLODIPine BESYLATE/BENAZEPRIL 10-40 MG] Ibuprofen [Motrin] 600 mg PO TID PRN 08/11/19 08/11/19 History Allergies Allergy/AdvReac Type Severity Reaction Status Date / Time No Known Allergies Allergy Verified 08/12/19 13:21 Sleep Note - Sleep Note Sleep Note: Temperature: Pulse Rate: Respiratory Rate: Blood Pressure: SpO2: Height: Weight: BMI: Neck Circumference:
== END ==
LOC: 3 N SLEEP 15:09
PROVIDERS: ATTEND Internal Medicine
DX: G47.33 Obstructive sleep apnea (adult) (pediatric) (principal); E66.9 Obesity, unspecified; I10 Essential (primary) hypertension; G25.0 Essential tremor; Z98.890 Other specified postprocedural states; Z68.38 Body mass index [BMI] 38.0-38.9, adult; Z99.89 Dependence on other enabling machines and devices; Z79.899 Other long term (current) drug therapy
CPT/HCPCS: 99211

== ENCOUNTER 2023-04-06 19:23 | Outpatient (CLI) | payer OTHER ==
--- NOTE | 2023-04-15 12:00 | P.PCN ---
Description of Procedure: POLYSOMNOGRAPHY REPORT PROCEDURE(S)/DATE(S): Polysomnography 04/06/2023 CLINICAL: Patient has been seen in the sleep center for evaluation of obstructive sleep apnea-hypopnea syndrome. Please see my consultation. Sleep study has been done for evaluation of patient breathing during the sleep. PROCEDURE: The standard montage for clinical polysomnography included the electroencephalogram, the electrooculogram, the mentalis surface electromyography and Lead II cardiography. The respiratory battery consisted of measurements of nasal/buccal air flow, pressure transducer measurements from nose, thoracic and/or abdominal effort and intercostal surface electromyography. Video monitoring has been done to check for any parasomnia events. Nocturnal oxyhemoglobin saturations were obtained by finger oximetry. Step-pool titration with positive airway pressure was utilized to control the respiratory events, if necessary. RESULTS: During the diagnostic sleep study sleep efficiency was slightly decreased to 81.0 %. Latency to sleep onset was short 7.5 min. Sleep architecture showed stage NI was normal 5.7 %, Delta sleep was normal 5.7 %, REM sleep was short 7.5 %. Respiratory channel showed 209 obstructive apneas, 0 mixed apneas, 0 central apneas, 26 hypopneas with lowest oxygen level 83 %. Total apnea hypopnea index was 40.9. Heart rate was in the range between 59 and 69, average 63. EMG showed no significant periodic limb movements . IMPRESSIONS: 1. Severe obstructive sleep apnea hypopnea syndrome. 2. No significant periodic limb movements have been documented. Please see other impressions from consultation PLAN: 1. The patient will have PAP titration for correction of respiratory abnormalities during the sleep. 2. Losing weight program. 3. Sleep hygiene with regular time in bed for at least 7-1/2 hours. 4. No driving if feeling sleepiness. Thank you very much for allowing me to participate in the management of your patient. Sincerely, Mark Trammell MD, PhD, FAASM. Diplomat of [employer], Sleep Medicine Board by [employer] Installation Coordinator of [facility] [place]
== END 2023-04-07 23:59 ==
LOC: 3 N SLEEP 19:23
PROVIDERS: ATTEND Internal Medicine
DX: G47.33 Obstructive sleep apnea (adult) (pediatric) (principal)
CPT/HCPCS: 95810

== ENCOUNTER 2023-08-31 20:50 | Emergency (ER) | payer OTHER ==
--- NOTE | 2023-08-31 21:08 | ED ---
General Adult HPI - General Source: patient Mode of arrival: ambulatory Limitations: no limitations <Devan William - Last Filed: 08/31/23 21:09> - General Source: RN notes reviewed, old records reviewed - History of Present Illness -: minutes(s) Radiation: non-radiation Severity scale (1-10): 4 Consistency: constant Improves with: none Worsens with: none Associated Symptoms: denies other symptoms Treatments Prior to Arrival: none <Adolfo Feliz - Last Filed: 09/08/23 12:11> - General Chief complaint: GI Bleed Stated complaint: GI Bleed Time Seen by Provider: 08/31/23 21:08 - History of Present Illness Initial comments: 52 year old male Presents to the ED with a chief complaint of blood in stool. Patient states yesterday started to feel pain around his rectum. Today, states he felt wet in the rectal area and when he wiped noticed blood on the tissue. Denies abdominal pain. (Devan William) This is a 52-year-old male to the emergency department for evaluation of blood in the stool. Patient also having pain in his rectal area with history of hemorrhoids believes that he does have a significant hemorrhoid currently and is concerned for the possibility that hemorrhoid bleeding to infection or blood- borne infection (Adolfo Feliz) - Related Data Home Medications Medication Instructions Recorded Confirmed Metoprolol Tartrate [Lopressor] 50 mg PO HS 07/12/19 08/11/19 Spironolactone 50 mg PO DAILY 07/12/19 08/11/19 amLODIPine BESYLATE/BENAZEPRIL 1 cap PO DAILY 07/12/19 08/11/19 [amLODIPine BESYLATE/BENAZEPRIL 10-40 MG] Ibuprofen [Motrin] 600 mg PO TID PRN 08/11/19 08/11/19 Allergies Allergy/AdvReac Type Severity Reaction Status Date / Time No Known Allergies Allergy Verified 08/31/23 20:57 Review of Systems ROS Other: All systems not noted in ROS Statement are negative. <Devan William - Last Filed: 08/31/23 21:09> ROS Other: All systems not noted in ROS Statement are negative. <Adolfo Feliz - Last Filed: 09/08/23 12:11> ROS Statement: Those systems with pertinent positive or pertinent negative responses have been documented in the HPI. Past Medical History Past Medical History: Hypertension, Sleep Apnea/CPAP/BIPAP Additional Past Medical History / Comment(s): bladder issues, hemmorhoids History of Any Multi-Drug Resistant Organisms: None Reported Additional Past Surgical History / Comment(s): left forearm, vastectomy, tumor removal from bladder 07/13/19 Past Psychological History: No Psychological Hx Reported Smoking Status: Never smoker Past Alcohol Use History: Rare Past Drug Use History: None Reported <Devan William - Last Filed: 08/31/23 21:09> General Exam Limitations: no limitations <Devan William - Last Filed: 08/31/23 21:09> General appearance: alert, in no apparent distress Head exam: Present: atraumatic, normocephalic, normal inspection Eye exam: Present: normal appearance, PERRL, EOMI. Absent: scleral icterus, conjunctival injection, periorbital swelling ENT exam: Present: normal exam, mucous membranes moist Neck exam: Present: normal inspection. Absent: tenderness, meningismus, lymphadenopathy Respiratory exam: Present: normal lung sounds bilaterally. Absent: respiratory distress, wheezes, rales, rhonchi, stridor Cardiovascular Exam: Present: regular rate, normal rhythm, normal heart sounds. Absent: systolic murmur, diastolic murmur, rubs, gallop, clicks GI/Abdominal exam: Present: soft, normal bowel sounds. Absent: distended, tenderness, guarding, rebound, rigid Rectal exam: Present: other (Patient does have rectal hemorrhoids) Extremities exam: Present: normal inspection, full ROM, normal capillary refill. Absent: tenderness, pedal edema, joint swelling, calf tenderness Back exam: Present: normal inspection Neurological exam: Present: alert, oriented X3, CN II-XII intact Psychiatric exam: Present: normal affect, normal mood Skin exam: Present: warm, dry, intact, normal color. Absent: rash <Adolfo Feliz - Last Filed: 09/08/23 12:11> - General Exam Comments Initial Comments: Visual Physical Exam Vital signs reviewed General: Well-appearing, nontoxic, no acute distress. Head: Normocephalic, atraumatic Eyes: PERRLA, EOMI ENT: Airway patent Chest: Nonlabored breathing Skin: No visual rash, normal skin tone Neuro: Alert and oriented 3 Musculoskeletal: No gross abnormalities (Devan William) Course <Vladimir Felize Chato - Last Filed: 09/08/23 12:11> Vital Signs 08/31/23 08/31/23 20:52 22:30 Temperature 98.1 F 98.2 F Pulse Rate 100 18 L Respiratory 20 89 H Rate Blood Pressure 162/110 151/111 O2 Sat by Pulse 94 L 96 Oximetry - Reevaluation(s) Reevaluation #1: Medical records reviewed (Adolfo Feliz) Reevaluation #2: Patient symptoms improved (Adolfo Feliz) Reevaluation #3: Patient informed results questions answered (Adolfo Feliz) Reevaluation #4: Was pt. sent in by a medical professional or institution (, PA, PHILATELIC CONSULTANT, urgent care, hospital, or longterm...) When possible be specific @ -no Did you speak to anyone other than the patient for history (EMS, parent, family, police, friend...)? What history was obtained from this source @ -no Did you review nursing and triage notes (agree or disagree)? Why? @ -agree Are old charts reviewed (outside hosp., previous admission, EMS record, old EKG, old radiological studies, urgent care reports/EKG's, longterm records)? Report findings @ -yes Differential Diagnosis (chest pain, altered mental status, abdominal pain women, abdominal pain men, vaginal bleeding, weakness, fever, dyspnea, syncope, headache, dizziness, GI bleed, back pain, seizure, CVA, palpatations, mental health, musculoskeletal)? @ -prior EKG interpreted by me (3pts min.). @ -no X-rays interpreted by me (1pt min.). @ -no CT interpreted by me (1pt min.). @ -no U/S interpreted by me (1pt. min.). @ -no What testing was considered but not performed or refused? (CT, X-rays, U/S, labs)? Why? @ -none What meds were considered but not given or refused? Why? @ -none Did you discuss the management of the patient with other professionals (professionals i.e. , PA, PHILATELIC CONSULTANT, lab, RT, psych nurse, director of social media marketing, sternman, teacher, custody officer, counseling case manager)? Give summary @ -no Was smoking cessation discussed for >3mins.? @ -no Was critical care preformed (if so, how long)? @ -no Were there social determinants of health that impacted care today? How? (Homelessness, low income, unemployed, alcoholism, drug addiction, transportation, low edu. Level, literacy, decrease access to med. care, [facility], rehab)? @ -none Was there de-escalation of care discussed even if they declined (Discuss DNR or withdrawal of care, Hospice)? DNR status @ -no What co-morbidities impacted this encounter? (DM, HTN, Smoking, COPD, CAD, Cancer, CVA, ARF, Chemo, Hep., AIDS, mental health diagnosis, sleep apnea, morbid obesity)? @ -none Was patient admitted / discharged? Hospital course, mention meds given and route, prescriptions, significant lab abnormalities, going to OR and other pertinent info. @ - 52 male to the emergency department for evaluation of rectal bleeding, concern for hemorrhoid with rectal pain. Patient does have a significant hemorrhoid here in the emergency room with but not thrombosed no clot noted. Patient given instructions for care and can be discharged home Discharge Undiagnosed new problem with uncertain prognosis? @ -no Drug Therapy requiring intensive monitoring for toxicity (Heparin, Nitro, Insulin, Cardizem)? @ -no Were any procedures done? @ -no Diagnosis/symptom? @ -Rectal hemorrhoid, thrombosed Acute, or Chronic, or Acute on Chronic? @ -Acute Uncomplicated (without systemic symptoms) or Complicated (systemic symptoms)? @ -Complicated Side effects of treatment? @ -no Exacerbation, Progression, or Severe Exacerbation? @ -exacerbation Poses a threat to life or bodily function? How? (Chest pain, [place], [place], pneumonia, PE, COPD, DKA, ARF, appy, cholecystitis, CVA, Diverticulitis, Homicidal, Suicidal, threat to staff... and all critical care pts) @ -no (Adolfo Feliz) Medical Decision Making <Devan William - Last Filed: 08/31/23 21:09> <Adolfo Feliz - Last Filed: 09/08/23 12:11> - Medical Decision Making Quicknote portion performed. Signed Devan William PA-C (Devan William) 52 male to the emergency department for evaluation of rectal bleeding, concern for hemorrhoid with rectal pain. Patient does have a significant hemorrhoid here in the emergency room with but not thrombosed no clot noted. Patient given instructions for care and can be discharged home (Adolfo Feliz) Disposition <Devan iWlliam - Last Filed: 08/31/23 21:09> Is patient prescribed a controlled substance at d/c from ED?: No Time of Disposition: 22:25 <Adolfo Feliz - Last Filed: 09/08/23 12:11> Clinical Impression: Hemorrhoid, Hemorrhoid thrombosis Disposition: HOME SELF-CARE Condition: Good Instructions (If sedation given, give patient instructions): Hemorrhoids (ED), Thrombosed Hemorrhoid (ED) Referrals: Norma Rodriguez DO [Primary Care Provider] - 1-2 days Mario Brooks MD [STAFF PHYSICIAN] - 1-2 days
[2023-08-31 23:20] VITALS: BP 151/111; PULSE 18; RESP 89; TEMP 98.2
== END 2023-08-31 22:32 | disposition home or self-care (01) ==
LOC: EC 20:50
DX: K64.5 Perianal venous thrombosis (principal); I10 Essential (primary) hypertension; G47.30 Sleep apnea, unspecified; Z79.899 Other long term (current) drug therapy
CPT/HCPCS: 99285